=== PATIENT | female | born 1945 | race Two or more races ===

== ENCOUNTER 2017-12-16 10:18 | Outpatient (CLI) | payer OTHER | END 2017-12-16 11:00 | disposition home or self-care (01) | LOC: NUCLEAR 10:18 | DX: I20.0 Unstable angina (principal) ==

== ENCOUNTER 2018-03-09 10:48 | Outpatient (CLI) | payer OTHER | END 2018-03-09 10:52 | disposition home or self-care (01) | LOC: RAD 501 10:48 | DX: M25.561 Pain in right knee (principal) ==

== ENCOUNTER 2018-04-28 10:30 | Outpatient (CLI) | payer OTHER | END 2018-04-28 10:35 | disposition home or self-care (01) | LOC: RAD 10:30 | DX: M25.512 Pain in left shoulder (principal) ==

== ENCOUNTER 2018-06-10 10:54 | Outpatient (CLI) | payer OTHER ==
[~2018-06-10] VITALS: Ht 147.3 cm; Wt 61.7 kg
== END 2018-06-10 11:15 | disposition home or self-care (01) ==
LOC: OFIC 805 10:54
DX: H90.3 Sensorineural hearing loss, bilateral (principal); H93.13 Tinnitus, bilateral; R42 Dizziness and giddiness

== ENCOUNTER 2018-07-11 09:48 | Outpatient (CLI) | payer OTHER ==
[~2018-07-11] VITALS: Ht 121.9 cm; Wt 57.2 kg
== END 2018-07-11 10:05 | disposition home or self-care (01) ==
LOC: OFIC 805 09:48
DX: H93.13 Tinnitus, bilateral (principal); H81.13 Benign paroxysmal vertigo, bilateral

== ENCOUNTER 2019-08-18 07:13 | Outpatient (CLI) | payer OTHER | END 2019-08-18 07:21 | disposition home or self-care (01) | LOC: NUCLEAR 07:13 | DX: I11.9 Hypertensive heart disease without heart failure (principal); I20.0 Unstable angina | CPT/HCPCS: 78452; 93017; A9500 ==

== ENCOUNTER 2022-12-21 12:44 | Outpatient (CLI) | payer OTHER | END 2022-12-21 12:48 | disposition home or self-care (01) | LOC: NUCLEAR 12:44 | PROVIDERS: ATTEND Internal Medicine | DX: M81.0 Age-related osteoporosis without current pathological fracture (principal) ==

== ENCOUNTER 2023-09-20 07:09 | Outpatient (CLI) | payer OTHER | END 2023-09-20 07:10 | disposition home or self-care (01) | LOC: NUCLEAR 07:09 | PROVIDERS: ATTEND Internal Medicine | DX: I20.9 Angina pectoris, unspecified (principal); I11.9 Hypertensive heart disease without heart failure | CPT/HCPCS: 78452; 93017; A9500; J0153 ==

== ENCOUNTER → 2024-12-20 08:29 | Outpatient (CLI) | payer OTHER | END | disposition home or self-care (01) | LOC: NUCLEAR 08:29 | PROVIDERS: ATTEND Internal Medicine | DX: I65.23 Occlusion and stenosis of bilateral carotid arteries (principal) ==

== ENCOUNTER 2025-05-17 07:10 | Outpatient (CLI) | payer OTHER | END 2025-05-17 07:16 | disposition home or self-care (01) | LOC: TOM 07:10 | PROVIDERS: ATTEND Internal Medicine | DX: R10.9 Unspecified abdominal pain (principal) | CPT/HCPCS: 74177; Q9965 ==